=== PATIENT | male | born 1935 | race Caucasian/White ===

== ENCOUNTER 2021-07-27 08:47 | Observation (INO) | payer MEDICARE, BC ==
[2021-07-27 10:04] LABS: ANION GAP 15.1 mEq/L (7-13); CHLORIDE,CL 102 mmol/L (98-107); SODIUM,NA 137 mmol/L (136-145)
[2021-07-27 11:21] LABS: CORONAVIRUS COVID-19 NAA NEGATIVE (NEGATIVE)
[2021-07-27 11:52] LABS: AMPHETAMINES,URINE NEGATIVE (NEGATIVE); BARBITURATES,URINE NEGATIVE (NEGATIVE); BENZODIAZEPINE,URINE NEGATIVE (NEGATIVE); MDMA (ECSTASY), URINE NEGATIVE (NEGATIVE); METHADONE,URINE NEGATIVE (NEGATIVE); METHAMPHETAMINES,URINE NEGATIVE (NEGATIVE); OPIATES,URINE NEGATIVE (NEGATIVE); OXYCODONE,URINE NEGATIVE (NEGATIVE); PHENCYCLIDINE,URINE NEGATIVE (NEGATIVE); TCA,URINE NEGATIVE (NEGATIVE)
[2021-07-27] MEDS ORDERED: cefTRIAXone 1 GM in Sodium Chloride 0.9% 50 ML IV ONE (12:24)
[2021-07-27] MEDS ORDERED: Bisacodyl 5 MG Tab PO PRN (15:31)
[2021-07-27] MEDS ORDERED: Docusate Sodium 100 MG Cap PO PRN (15:31)
[2021-07-27] MEDS ORDERED: Acetaminophen 325 MG Tab PO PRN (15:31)
[2021-07-27] MEDS ORDERED: Polyethylene Glycol 3350 Powder 17 GM Packet PO PRN (15:31)
[2021-07-27] MEDS ORDERED: cefTRIAXone 1 GM Vial IM SCH (15:45)
[2021-07-27] MEDS ORDERED: Sodium Chloride 0.9% 1,000 ML IV SCH (16:00)
[2021-07-27] MEDS: Sodium Chloride 0.9% 10 ML Syringe FLUSH SCH (20:45)
[2021-07-28] MEDS ORDERED: Levothyroxine 75 MCG Tab PO SCH (06:00)
[2021-07-28 06:54] LABS: ANION GAP 13.4 mEq/L (7-13)
[2021-07-28] MEDS ORDERED: cefTRIAXone 1 GM Vial IV SCH (08:00)
[2021-07-28] MEDS ORDERED: Water For Injection, Sterile 20 ML ONE (08:59)
[2021-07-28] MEDS ORDERED: amLODIPine 5 MG Tab PO SCH (09:00)
[2021-07-28] MEDS ORDERED: atorvaSTATin 10 MG Tab PO SCH (09:00)
[2021-07-28] MEDS ORDERED: Enoxaparin 40 MG/0.4 ML Syringe SUBCUT SCH (09:00)
[2021-07-28] MEDS ORDERED: Aspirin 325 MG Tab.EC PO SCH (09:00)
[2021-07-28] MEDS ORDERED: Metoprolol Succinate 50 MG Tab.ER PO SCH (09:00)
[2021-07-28] MEDS ORDERED: Tamsulosin 0.4 MG Cap.ER PO SCH (09:00)
[2021-07-28] MEDS ORDERED: Dutasteride 0.5 MG Cap PO SCH (09:00)
[2021-07-28] MEDS ORDERED: Docusate Sodium 100 MG Cap PO SCH (09:00)
[2021-07-28] MEDS: Sodium Chloride 0.9% 10 ML Syringe FLUSH SCH (09:10)
== END 2021-07-28 14:15 | disposition home or self-care (01) ==
LOC: DL.ED 08:47 → DL.MS 13:22 → INTOOBSV 13:22
PROVIDERS: ADMIT Internal Medicine; ATTEND Internal Medicine
DX: R55 Syncope and collapse (principal); S09.90XA Unspecified injury of head, initial encounter; I25.10 Atherosclerotic heart disease of native coronary artery without angina pectoris; E78.00 Pure hypercholesterolemia, unspecified; I25.2 Old myocardial infarction; I10 Essential (primary) hypertension; E03.9 Hypothyroidism, unspecified; Z20.822 Contact with and (suspected) exposure to COVID-19; Z79.890 Hormone replacement therapy; Z79.899 Other long term (current) drug therapy; Z79.82 Long term (current) use of aspirin; W19.XXXA Unspecified fall, initial encounter; Z95.5 Presence of coronary angioplasty implant and graft
CPT/HCPCS: 0240U; 36415; 51701; 70450; 70486; 72125; 80048; 80053; 80305; 80307; 81001; 83605; 83735; 83880; 84484; 85025; 85027; 85610; 85730; 86140; 87086; 87088; 87186; 93005; 96365; 96372; 96376; 99285; A9270; G0378; J0696; J1650; J7030

== ENCOUNTER 2022-03-12 08:22 | Day surgery (SDC) | payer MEDICARE, BC ==
[2022-03-12] MEDS ORDERED: Dexamethasone 4 MG/ML SDV IV ONE (08:23)
[2022-03-12] MEDS ORDERED: Midazolam 1 MG/ML 2 ML SDV IV ONE (08:23)
[2022-03-12] MEDS ORDERED: Sodium Chloride 0.9% 10 ML Syringe IV ONE (08:23)
[2022-03-12] MEDS ORDERED: Acetaminophen/Codeine 300-30 MG Tab PO PRN (08:30)
[2022-03-12] MEDS ORDERED: Phenylephrine 10% Ophth Soln 5 ML Bot EYELF PRN (08:30)
[2022-03-12] MEDS ORDERED: Cataract Ophth Solution EYELF ONE (08:30)
[2022-03-12] MEDS ORDERED: Ondansetron 4 MG/2 ML SDV IVPUSH PRN (08:30)
[2022-03-12] MEDS ORDERED: Povidone-Iodine 5% Sterile Ophth Soln 30 ML Bottle EYELF ONE ×2 (08:30→09:34)
[2022-03-12] MEDS ORDERED: Proparacaine 0.5% Ophth Soln 15 ML Bottle EYELF ONE (08:30)
[2022-03-12] MEDS ORDERED: Sodium Chloride 0.9% 10 ML Syringe FLUSH PRN (08:30)
[2022-03-12] MEDS ORDERED: Acetaminophen 325 MG Tab PO PRN (08:30)
[2022-03-12] MEDS ORDERED: Moxifloxacin 0.5% Ophth Soln 3 ML Bottle EYELF ONE (08:30)
[2022-03-12] MEDS ORDERED: Tropicamide 1% Ophth Soln 15 ML Bottle EYELF ONE (08:30)
[2022-03-12] MEDS ORDERED: Timolol Maleate 0.5% Ophth Soln 5 ML Bottle EYELF ONE (08:30)
[2022-03-12] MEDS ORDERED: Tetracaine HCl/PF 0.5% 4 ML Bottle EYELF ONE (09:33)
[2022-03-12] MEDS ORDERED: Diclofenac Sodium 0.1% Ophth Soln 5 ML Bottle EYELF ONE (09:35)
[2022-03-12] MEDS ORDERED: Apraclonidine 0.5% Ophth Soln 5 ML Bot EYELF ONE (09:35)
[2022-03-12] MEDS ORDERED: Dexamethasone/Neomycin/Polymyxin B Ophth Oint 3.5 GM Tube EYELF ONE (09:36)
[2022-03-12] MEDS ORDERED: Lidocaine 1% 30 ML SDV ONE (09:36)
[2022-03-12] MEDS ORDERED: Vancomycin 500 MG SDV EYELF ONE (09:37)
[2022-03-12] MEDS ORDERED: Balanced Salt Solution Ophth Irrig 500 ML Bottle IOCULAR ONE (09:37)
[2022-03-12] MEDS ORDERED: Dexamethasone 4 MG/ML SDV IOCULAR ONE (09:38)
[2022-03-12] MEDS ORDERED: Chondroitin Sulfate/Hyaluronate Sodium Ophth Inj 0.75 ML Syringe EYELF ONE (09:38)
== END 2022-03-12 10:50 | disposition home or self-care (01) ==
LOC: DL.SDS 08:22
PROVIDERS: ATTEND Ophthalmology
DX: H25.812 Combined forms of age-related cataract, left eye (principal); I12.9 Hypertensive chronic kidney disease with stage 1 through stage 4 chronic kidney disease, or unspecified chronic kidney disease; N18.9 Chronic kidney disease, unspecified; N40.0 Benign prostatic hyperplasia without lower urinary tract symptoms; E78.00 Pure hypercholesterolemia, unspecified; I25.810 Atherosclerosis of coronary artery bypass graft(s) without angina pectoris; E03.9 Hypothyroidism, unspecified; Z95.5 Presence of coronary angioplasty implant and graft; Z79.02 Long term (current) use of antithrombotics/antiplatelets; Z79.899 Other long term (current) drug therapy; Z79.890 Hormone replacement therapy
CPT/HCPCS: 00142; 66982; A9270; J1100; J2250; J3370; J3490; V2787

== ENCOUNTER 2022-03-26 08:34 | Day surgery (SDC) | payer MEDICARE, BC ==
[~2022-03-26 08:34] MED LIST: Acetaminophen 325 MG Tab PO PRN; Acetaminophen/Codeine 300-30 MG Tab PO PRN; Ondansetron 4 MG/2 ML SDV IVPUSH PRN; Povidone-Iodine 5% Sterile Ophth Soln 30 ML Bottle EYERT ONE
[2022-03-26] MEDS ORDERED: Sodium Chloride 0.9% 10 ML Syringe IV ONE (08:35)
[2022-03-26] MEDS ORDERED: Midazolam 1 MG/ML 2 ML SDV IV ONE (08:35)
[2022-03-26] MEDS ORDERED: Dexamethasone 4 MG/ML SDV IV ONE (08:35)
[2022-03-26] MEDS: Proparacaine 0.5% Ophth Soln 15 ML Bottle EYERT ONE (08:48)
[2022-03-26] MEDS: Moxifloxacin 0.5% Ophth Soln 3 ML Bottle EYERT ONE (08:49)
[2022-03-26] MEDS: Phenylephrine 10% Ophth Soln 5 ML Bot EYERT PRN (08:50)
[2022-03-26] MEDS: Tropicamide 1% Ophth Soln 15 ML Bottle EYERT ONE (08:50)
[2022-03-26] MEDS: Timolol Maleate 0.5% Ophth Soln 5 ML Bottle EYERT ONE (08:51)
[2022-03-26] MEDS: Cataract Ophth Solution EYERT ONE (08:52)
[2022-03-26] MEDS: Sodium Chloride 0.9% 10 ML Syringe FLUSH PRN (08:56)
[2022-03-26] MEDS: Tetracaine HCl/PF 0.5% 4 ML Bottle EYERT ONE (10:03)
[2022-03-26] MEDS: Povidone-Iodine 5% Sterile Ophth Soln 30 ML Bottle EYERT ONE (10:04)
[2022-03-26] MEDS: Diclofenac Sodium 0.1% Ophth Soln 5 ML Bottle EYERT ONE (10:05)
[2022-03-26] MEDS: Apraclonidine 0.5% Ophth Soln 5 ML Bot EYERT ONE (10:05)
[2022-03-26] MEDS: Dexamethasone/Neomycin/Polymyxin B Ophth Oint 3.5 GM Tube EYERT ONE (10:06)
[2022-03-26] MEDS: Vancomycin 500 MG SDV EYERT ONE (10:07)
[2022-03-26] MEDS: Balanced Salt Solution Ophth Irrig 500 ML Bottle IOCULAR ONE (10:07)
[2022-03-26] MEDS: Lidocaine 1% 30 ML SDV ONE (10:07)
[2022-03-26] MEDS: Chondroitin Sulfate/Hyaluronate Sodium Ophth Inj 0.75 ML Syringe EYERT ONE (10:08)
[2022-03-26] MEDS: Dexamethasone 4 MG/ML SDV ONE (10:09)
== END 2022-03-26 11:20 | disposition home or self-care (01) ==
LOC: DL.SDS 08:34
PROVIDERS: ATTEND Ophthalmology
DX: H25.811 Combined forms of age-related cataract, right eye (principal); I12.9 Hypertensive chronic kidney disease with stage 1 through stage 4 chronic kidney disease, or unspecified chronic kidney disease; N18.30 Chronic kidney disease, stage 3 unspecified; N40.0 Benign prostatic hyperplasia without lower urinary tract symptoms; E78.00 Pure hypercholesterolemia, unspecified; I25.10 Atherosclerotic heart disease of native coronary artery without angina pectoris; E03.9 Hypothyroidism, unspecified; Z95.1 Presence of aortocoronary bypass graft; Z98.890 Other specified postprocedural states; Z79.899 Other long term (current) drug therapy; Z79.82 Long term (current) use of aspirin
CPT/HCPCS: 00142; 66982; A9270; J1100; J2250; J3370; J3490; V2632